=== PATIENT | male | born 1970 ===

== ENCOUNTER 2019-08-12 08:45 | Inpatient (IN) | payer OTHER ==
[~2019-08-12] VITALS: Ht 195.6 cm; Wt 96.2 kg
[2019-08-12] MEDS ORDERED: ZYRTEC10 M3 PO (11:13)
[2019-08-12] MEDS ORDERED: ADVIL100 M1 PO (11:13)
== END 2019-08-20 15:13 | DRG 470 ==
LOC: O/R 08-18 05:42 → SURG 08-18 05:42 → EDSEX 08-18 05:42 → SURH 08-18 07:00 → O/R 08-18 08:45 → SURG 08-18 11:17
PROVIDERS: ADMIT Orthopaedic Surgery
PROC: 0SRD0J9 Replacement of Left Knee Joint with Synthetic Substitute, Cemented, Open Approach (ICD-10-PCS; principal; 2019-08-18 07:00)
DX: M17.12 Unilateral primary osteoarthritis, left knee (principal); D62 Acute posthemorrhagic anemia